=== PATIENT | female | born 1960 | race Two or more races ===

== ENCOUNTER 2020-11-10 10:45 | Outpatient (REF) | payer MEDICARE, MEDICAID, SELFPAY ==
--- NOTE | ~2020-11-10 | MM_ITS ---
EXAMINATION: MM SCREENING DIGITAL BREAST TOMOSYNTHESIS, BILATERAL CLINICAL INFORMATION: Screening. Asymptomatic. The lifetime risk of breast cancer based on the Tyrer-Cuzick Model is 6.8%. COMPARISON: Mammography: November 05, 2019 and studies dating back to April 21, 2012 TECHNIQUE: Digital breast tomosynthesis is performed in both the craniocaudal and mediolateral oblique views along with computer-aided detection (CAD). Synthesized 2D images are generated from the tomosynthesis. FINDINGS: There are scattered areas of fibroglandular density (ACR BI-RADS breast composition Category b). There are no significant masses, abnormal calcifications, or other abnormalities. MM/MM tomosynthesis screening BI IMPRESSION: There are no significant changes from prior study. ASSESSMENT: BI-RADS 1: Negative RECOMMENDATION: Routine annual mammography screening. This patient's information was entered into a reminder system with a target due date for their next mammogram.
== END 2020-11-10 10:46 | disposition home or self-care (01) ==
LOC: HO.MAMMO 10:45
PROVIDERS: PCP Internal Medicine; Visit Provider Internal Medicine
DX: Z12.31 Encounter for screening mammogram for malignant neoplasm of breast (principal)
CPT/HCPCS: 77063; 77067

== ENCOUNTER 2021-04-07 09:47 | Outpatient (REF) | payer MEDICARE, SELFPAY ==
[2021-04-07 13:31] LABS: MANUAL DIFF FLAG NO
[2021-04-07 13:35] LABS: Basophils Percent Auto 0.5 % (0-2); Eosinophils Absolute Auto 0.1 X10*3/uL (0.0-0.4); Eosinophils Percent Auto 1.8 % (0-4); Hematocrit 42.6 % (37-47); Hemoglobin 13.9 g/dl (12.0-16.0); Imm Gran Abs Auto 0.01 X10*3/uL (0.00-0.03); Imm Gran Pct Auto 0.2 % (0.0-0.4); Lymphocytes Absolute Auto 1.7 X10*3/uL (1.2-4.9); Lymphocytes Percent Auto 38.2 % (20-40); Mean Corpuscular HGB Conc 32.6 g/dl (31.0-35.0); Mean Corpuscular Hemoglobin 31.2 pg (27.0-33.0); Mean Corpuscular Volume 95.5 fL (80-98); Monocytes Absolute Auto 0.3 X10*3/uL (0.1-1.2); Monocytes Percent Auto 5.7 % (2-11); Neutrophils Absolute Auto 2.3 X10*3/uL (2.0-8.3); Neutrophils Percent Auto 53.6 % (45-73); Platelet Count 200 X10*3/uL (160-400); Red Blood Count 4.46 X10*6/uL (4.20-5.50); Red Cell Distribution Width 12.2 % (11.0-16.0); White Blood Count 4.4 X10*3/uL (4.8-10.8)
[2021-04-07 13:44] LABS: Glucose Urine UA NEG (NEG); Leukocyte Esterase Urine NEG (NEG); Nitrite Urine NEG (NEG); Specific Gravity - Urine >= 1.030 (1.005-1.025); Urine Blood NEG (NEG); Urine Ketones 5 MG/DL (NEG); Urine Protein NEG (NEG-TRACE)
[2021-04-07 13:45] LABS: Appearance Urine HAZY; Color Urine YELLOW
[2021-04-07 13:55] LABS: Alanine Aminotransferase < 6 U/L (0-31); Albumin Level 4.4 g/dL (3.5-5.0); Alkaline Phosphatase 70 U/L (39-117); Anion Gap 11 (12-20); Aspartate Amino Transferase 17 U/L (5-31); Bilirubin Total 0.5 mg/dL (0.0-1.0); Blood Urea Nitrogen 18 mg/dL (9-16); Calcium 9.7 mg/dL (8.4-10.2); Carbon Dioxide 31 mmol/L (22-29); Chloride 103 mmol/L (96-108); Cholesterol 241 mg/dL; Estimated Glomerular Filt Rate > 60; Glucose Random 101 mg/dL (60-115); HDL Cholesterol 69 mg/dL; LDL Cholesterol Calculated 153 mg/dl; Potassium 3.9 mmol/L (3.3-5.1); Sodium 141 mmol/L (135-145); Total Protein 7.3 g/dL (6.5-8.0); Triglycerides 98 mg/dL
[2021-04-07 13:56] LABS: Bacteria Urine 1+ /LPF; RBC Urine 0 /HPF (0); Squamous Epithelial Cell Urine 1+ /LPF; WBC Urine 0-2 /HPF (0-4)
[2021-04-07 14:06] LABS: Free T4 (Free Thyroxine) 0.95 ng/dL (0.71-1.85); Thyroid Stimulating Hormone 1.68 uIU/mL (0.32-4.0); Vitamin D 25-OH Total 41.6 ng/mL (>30)
[2021-04-07 14:28] LABS: Folate > 20.0 ng/mL (> or = 4.0); Vitamin B12 491 pg/mL (200-900)
== END 2021-04-07 09:48 | disposition home or self-care (01) ==
LOC: HO.10HDL 09:47
PROVIDERS: Visit Provider Internal Medicine
DX: E78.00 Pure hypercholesterolemia, unspecified (principal); G20 Parkinson's disease
CPT/HCPCS: 36415; 80053; 80061; 81001; 82306; 82607; 82746; 84439; 84443; 85025

== ENCOUNTER → 2021-05-03 09:37 | Outpatient (BNVA) | payer OTHER, SELFPAY | PROVIDERS: PCP Internal Medicine; Visit Provider Obstetrics & Gynecology | DX: R23.2 Flushing (principal) | CPT/HCPCS: 99212 ==

== ENCOUNTER → 2021-05-15 11:21 | Outpatient (BNVA) | payer OTHER, SELFPAY | PROVIDERS: PCP Internal Medicine; Visit Provider Obstetrics & Gynecology | CPT/HCPCS: Q3014 ==

== ENCOUNTER → 2021-10-02 13:51 | Outpatient (BNVA) | payer OTHER, MEDICARE, SELFPAY | PROVIDERS: PCP Internal Medicine; Visit Provider Nurse Practitioner Family | DX: G20 Parkinson's disease (principal); K59.00 Constipation, unspecified; F41.9 Anxiety disorder, unspecified; F32.9 Major depressive disorder, single episode, unspecified; R44.3 Hallucinations, unspecified | CPT/HCPCS: 99212 ==

== ENCOUNTER → 2021-11-30 14:36 | Outpatient (BNVA) | payer OTHER, SELFPAY | PROVIDERS: PCP Internal Medicine; Visit Provider Nurse Practitioner Family | DX: G20 Parkinson's disease (principal); G24.9 Dystonia, unspecified; K59.00 Constipation, unspecified; R23.2 Flushing | CPT/HCPCS: 99212 ==

== ENCOUNTER 2021-12-06 15:16 | Outpatient (REF) | payer OTHER, SELFPAY ==
--- NOTE | ~2021-12-06 | MM_ITS ---
EXAMINATION: MM SCREENING DIGITAL BREAST TOMOSYNTHESIS, BILATERAL CLINICAL INFORMATION: Screening. Asymptomatic. The lifetime risk of breast cancer based on the Tyrer-Cuzick Model is 6.1%. COMPARISON: Mammography: November 10, 2020 and studies dating back to May 26, 2014 TECHNIQUE: Digital breast tomosynthesis is performed in both the craniocaudal and mediolateral oblique views along with computer-aided detection (CAD). Synthesized 2D images are generated from the tomosynthesis. FINDINGS: There are scattered areas of fibroglandular density (ACR BI-RADS breast composition Category b). There are no new significant masses, abnormal calcifications, or other abnormalities. Region of stable distortion seen about the lateral aspect of the right breast. MM/MM tomosynthesis screening BI IMPRESSION: There are no significant changes from prior study. ASSESSMENT: BI-RADS 2: Benign RECOMMENDATION: Routine annual mammography screening. This patient's information was entered into a reminder system with a target due date for their next mammogram.
== END 2021-12-06 15:17 | disposition home or self-care (01) ==
LOC: HO.MAMMO 15:16
PROVIDERS: Visit Provider Internal Medicine
DX: Z12.31 Encounter for screening mammogram for malignant neoplasm of breast (principal)
CPT/HCPCS: 77063; 77067

== ENCOUNTER → 2022-03-08 09:55 | Outpatient (BNVA) | payer OTHER, SELFPAY | PROVIDERS: PCP Internal Medicine; Visit Provider Nurse Practitioner Family | DX: G20 Parkinson's disease (principal); G24.9 Dystonia, unspecified | CPT/HCPCS: 99212 ==

== ENCOUNTER 2022-04-13 12:57 | Outpatient (REF) | payer OTHER, SELFPAY ==
--- NOTE | ~2022-04-13 | MM_ITS ---
EXAMINATION: BONE DENSITOMETRY CLINICAL INDICATION: Osteoporosis. COMPARISON: Previous BD dated 11/05/2019 and baseline BD dated 04/10/2012. TECHNIQUE: Using a [employer] DXA System (software version: 13.1) manufactured by [employer], dual-energy x-ray absorptiometry was performed of the lumbar spine and left hip. The images are of good technical quality. Summary results are attached. FINDINGS: AP SPINE L1-L4: Current: BMD 1.016 g/cm2, Z-score 0.2, T-score -1.4, osteopenia, 1.1% decrease from previous, 13.5% decrease from baseline (<5% change is not significant). Prior: BMD 1.027 g/cm2. Baseline: BMD 1.174 g/cm2. LEFT FEMUR, NECK: Current: BMD 0.683 g/cm2, Z-score -1.1, T-score -2.6, osteoporosis. Prior: BMD 0.802 g/cm2. Baseline: BMD 0.880 g/cm2. LEFT FEMUR, TOTAL: Current: BMD 0.728 g/cm2, Z-score -1.1, T-score -2.2, osteopenia, 15.1% decrease from previous, 26.0% decrease from baseline (<5% change is not significant). Prior: BMD 0.857 g/cm2. Baseline: BMD 0.984 g/cm2. IDENTIFIED RISK FACTORS: Menopause, osteoporosis, rheumatoid arthritis. HISTORY OF FRACTURE: None listed. MEDICATIONS: Multivitamin, vitamin D. MM/XR DEXA axial skeleton IMPRESSION: 1. DIAGNOSIS: Osteoporosis based on the lowest T-score value of -2.6 in the femoral neck applying World Health Organization criteria. 2. 10-YEAR FRACTURE RISK PREDICTION, FRAX: According to the guidelines, FRAX calculation should only be performed on patients in the osteopenia bone density category. Therefore, FRAX was not performed on this patient. 3. Treatment Recommendations: NOF guidelines recommend consideration for treatment in postmenopausal women and men age 50 and older presenting with the following: -A hip or vertebral (clinical or morphometric) fracture. -T-score less than or equal to -2.5 at the femoral neck or spine after appropriate evaluation to exclude secondary causes. -Low bone mass at the hip or spine and a 10-year fracture probability by FRAX of greater than or equal to 3% for hip fracture or greater than or equal to 20% for major osteoporotic fracture based on the [place] adapted WHO algorithm. 4. Other Recommendations: All treatment decisions require clinical judgment and consideration of individual patient factors, including patient preferences, comorbidities, previous drug use, risk factors not captured in the FRAX model (e.g. frailty, falls, vitamin D deficiency, increased bone turnover, interval significant decline in bone density) and possible under or overestimation of fracture risk by FRAX. Additional medical evaluation for secondary cause of low bone mineral density may be appropriate. FUTURE SCAN RECOMMENDATION: People with diagnosed cases of osteoporosis or at high risk for fracture should have regular bone mineral density tests. For patients eligible for Medicare, routine testing is allowed once every 2 years. The testing frequency can be increased to one year for patients who have rapidly progressing disease, those who are receiving or discontinuing medical therapy to restore bone mass, or have additional risk factors.
== END 2022-04-13 12:58 | disposition home or self-care (01) ==
LOC: HO.MAMMO 12:57
PROVIDERS: PCP Internal Medicine; Visit Provider Internal Medicine
DX: M81.0 Age-related osteoporosis without current pathological fracture (principal); M06.9 Rheumatoid arthritis, unspecified; Z78.0 Asymptomatic menopausal state
CPT/HCPCS: 77080

== ENCOUNTER 2022-04-23 11:17 | Outpatient (REF) | payer OTHER, SELFPAY ==
[2022-04-23 13:38] LABS: MANUAL DIFF FLAG NO
[2022-04-23 13:49] LABS: Basophils Percent Auto 0.7 % (0-2); Eosinophils Absolute Auto 0.1 X10*3/uL (0.0-0.4); Eosinophils Percent Auto 1.2 % (0-4); Hematocrit 45.5 % (37.0-47.0); Hemoglobin 15.2 g/dl (12.0-16.0); Imm Gran Abs Auto 0.02 X10*3/uL (0.00-0.03); Imm Gran Pct Auto 0.3 % (0.0-0.4); Lymphocytes Absolute Auto 1.8 X10*3/uL (1.2-4.9); Lymphocytes Percent Auto 31.5 % (20-40); Mean Corpuscular HGB Conc 33.4 g/dl (31.0-35.0); Mean Corpuscular Hemoglobin 31.2 pg (27.0-33.0); Mean Corpuscular Volume 93.4 fL (80.0-98.0); Mean Platelet Volume 11.4 fL (9.4-12.3); Monocytes Absolute Auto 0.3 X10*3/uL (0.1-1.2); Monocytes Percent Auto 5.7 % (2-11); Neutrophils Absolute Auto 3.5 x10*3/uL (2.0-8.3); Neutrophils Percent Auto 60.6 % (45-73); Platelet Count 247 X10*3/uL (160-400); Red Blood Count 4.87 X10*6/uL (4.20-5.50); Red Cell Distribution Width 12.1 % (11.0-16.0); White Blood Count 5.8 X10*3/uL (4.8-10.8)
[2022-04-23 14:16] LABS: Alanine Aminotransferase 6 U/L (0-31); Albumin Level 5.1 g/dL (3.5-5.0); Alkaline Phosphatase 78 U/L (39-117); Anion Gap 19 (12-20); Aspartate Amino Transferase 22 U/L (5-31); Bilirubin Total 0.9 mg/dL (0.0-1.0); Blood Urea Nitrogen 17 mg/dL (9-16); Calcium 10.5 mg/dL (8.4-10.2); Carbon Dioxide 25 mmol/L (22-29); Chloride 104 mmol/L (96-108); Cholesterol 252 mg/dL; Estimated Glomerular Filt Rate > 60; Glucose Random 110 mg/dL (60-115); HDL Cholesterol 83 mg/dL; LDL Cholesterol Calculated 143 mg/dl; Sodium 144 mmol/L (135-145); Total Protein 8.4 g/dL (6.5-8.0); Triglycerides 131 mg/dL
[2022-04-23 14:22] LABS: Appearance Urine HAZY; Color Urine YELLOW; Glucose Urine UA NEG (NEG); Leukocyte Esterase Urine NEG (NEG); Nitrite Urine NEG (NEG); PH 5.5 (5.0-8.0); Specific Gravity - Urine >= 1.030 (1.005-1.025); Urine Blood NEG (NEG); Urine Ketones 15 MG/DL (NEG); Urine Protein 1+ MG/DL (NEG-TRACE)
[2022-04-23 14:28] LABS: Free T4 (Free Thyroxine) 1.09 ng/dL (0.71-1.85); Thyroid Stimulating Hormone 4.59 uIU/mL (0.32-4.0); Vitamin D 25-OH Total 38.3 ng/mL (>30)
[2022-04-23 14:33] LABS: Bacteria Urine 1+ /LPF
[2022-04-23 14:34] LABS: Squamous Epithelial Cell Urine 1+ /LPF
[2022-04-23 14:35] LABS: Mucus Urine 1+ /LPF
[2022-04-23 14:37] LABS: RBC Urine 0-2 /HPF (0)
[2022-04-23 14:40] LABS: Folate > 20.0 ng/mL (> or = 4.0); Vitamin B12 430 pg/mL (200-900)
[2022-04-23 14:57] LABS: Erythrocyte Sedimentation Rate 7 MM/HR (0-20)
== END 2022-04-23 11:18 | disposition home or self-care (01) ==
LOC: HO.10HDL 11:17
PROVIDERS: Visit Provider Internal Medicine
DX: E78.00 Pure hypercholesterolemia, unspecified (principal)
CPT/HCPCS: 36415; 80053; 80061; 81001; 82306; 82607; 82746; 84439; 84443; 85025; 85652

== ENCOUNTER 2022-06-07 09:52 | Outpatient (REF) | payer OTHER, SELFPAY ==
[2022-06-14 22:41] LABS: HPV mRNA E6/E7 rflx Not Detected (Not Detected)
== END 2022-06-07 09:53 ==
LOC: HO.LNP 09:52
PROVIDERS: Visit Provider Advanced Practice Midwife
DX: Z01.419 Encounter for gynecological examination (general) (routine) without abnormal findings (principal); Z11.51 Encounter for screening for human papillomavirus (HPV)
CPT/HCPCS: 87624; 88142

== ENCOUNTER → 2022-06-18 12:51 | Outpatient (BNVA) | payer OTHER, SELFPAY | PROVIDERS: PCP Internal Medicine; Visit Provider Nurse Practitioner Family | DX: G20 Parkinson's disease (principal); R23.2 Flushing | CPT/HCPCS: 99212 ==

== ENCOUNTER → 2022-08-01 12:47 | Outpatient (BNVA) | payer OTHER, SELFPAY | PROVIDERS: PCP Internal Medicine; Visit Provider Internal Medicine Endocrinology, Diabetes & Metabolism | DX: E83.52 Hypercalcemia (principal) | CPT/HCPCS: 99202 ==

== ENCOUNTER 2022-08-02 12:45 | Outpatient (REF) | payer OTHER, SELFPAY ==
[2022-08-02 14:25] LABS: Alanine Aminotransferase 6 U/L (0-31); Albumin Level 4.6 g/dL (3.5-5.0); Alkaline Phosphatase 73 U/L (39-117); Anion Gap 13 (12-20); Aspartate Amino Transferase 20 U/L (5-31); Bilirubin Total 0.4 mg/dL (0.0-1.0); Blood Urea Nitrogen 24 mg/dL (9-16); Calcium 9.6 mg/dL (8.4-10.2); Carbon Dioxide 30 mmol/L (22-29); Chloride 101 mmol/L (96-108); Estimated Glomerular Filt Rate > 60; Glucose Random 73 mg/dL (60-115); Potassium 4.1 mmol/L (3.3-5.1); Sodium 140 mmol/L (135-145); Total Protein 7.5 g/dL (6.5-8.0)
[2022-08-02 14:46] LABS: Free T4 (Free Thyroxine) 0.89 ng/dL (0.71-1.85); Thyroid Stimulating Hormone 2.37 uIU/mL (0.32-4.0)
[2022-08-03 12:22] LABS: Calcium (PTHI) 9.6 mg/dL (8.6-10.4); PTHI 36 pg/mL (16-77)
== END 2022-08-02 12:46 | disposition home or self-care (01) ==
LOC: HO.10HDL 12:45
PROVIDERS: Internal Medicine Endocrinology, Diabetes & Metabolism; Absent Provider Nurse Practitioner Family; Visit Provider Internal Medicine
DX: E83.52 Hypercalcemia (principal)
CPT/HCPCS: 36415; 80053; 83970; 84439; 84443

== ENCOUNTER → 2022-11-01 14:50 | Outpatient (BNVA) | payer OTHER, SELFPAY | PROVIDERS: PCP Internal Medicine; Visit Provider Nurse Practitioner Family | DX: G20 Parkinson's disease (principal); R23.2 Flushing; K59.00 Constipation, unspecified; G24.9 Dystonia, unspecified; Z79.899 Other long term (current) drug therapy | CPT/HCPCS: 99212 ==

== ENCOUNTER 2022-12-07 15:28 | Outpatient (REF) | payer OTHER, SELFPAY ==
--- NOTE | ~2022-12-07 | MM_ITS ---
EXAMINATION: MM SCREENING DIGITAL BREAST TOMOSYNTHESIS, BILATERAL CLINICAL INFORMATION: Screening. Asymptomatic. The lifetime risk of breast cancer based on the Tyrer-Cuzick Model is 6%. COMPARISON: Mammography: 12/06/2021, 11/10/2020, 11/05/2019 TECHNIQUE: Digital breast tomosynthesis is performed in both the craniocaudal and mediolateral oblique views along with computer-aided detection (CAD). Synthesized 2D images are generated from the tomosynthesis. FINDINGS: There are scattered areas of fibroglandular density (ACR BI-RADS breast composition Category b). There are no significant masses, abnormal calcifications, or other abnormalities. No developing density or architectural abnormality. No significant changes. The axilla and skin contours are unremarkable. MM/MM tomosynthesis screening BI IMPRESSION: No mammographic evidence of malignancy. ASSESSMENT: BI-RADS 1: Negative RECOMMENDATION: Routine annual mammography screening. This patient's information was entered into a reminder system with a target due date for their next mammogram.
== END 2022-12-07 15:29 | disposition home or self-care (01) ==
LOC: HO.MAMMO 15:28
PROVIDERS: Visit Provider Internal Medicine
DX: Z12.31 Encounter for screening mammogram for malignant neoplasm of breast (principal)
CPT/HCPCS: 77063; 77067

== ENCOUNTER 2022-12-12 13:26 | Outpatient (REF) | payer OTHER, SELFPAY ==
[2022-12-12 14:22] LABS: Appearance Urine Cloudy; Color Urine Yellow; Glucose Urine UA Negative (Negative); Leukocyte Esterase Urine Trace (Negative); Nitrite Urine Positive (Negative); PH 6.5 (5.0-9.0); Specific Gravity - Urine >= 1.030 (1.005-1.025); UMIC TRIGGER UACC YES; Urine Blood Negative (Negative); Urine Ketones 15 mg/dL (Negative); Urine Protein Trace mg/dL (Neg-Trace)
[2022-12-12 14:36] LABS: Bacteria Urine 4+ (None Seen); Calcium Oxalate Crystals Urine Present; Hyaline Casts Urine 0-2 /LPF (0-2); Squamous Epithelial Cell Urine 0-2 /HPF (0-2); UACC Culture Trigger YES
== END 2022-12-12 13:27 | disposition home or self-care (01) ==
LOC: HO.LAB 13:26
PROVIDERS: PCP Internal Medicine; Visit Provider Nurse Practitioner Family
DX: R35.0 Frequency of micturition (principal); R30.0 Dysuria
CPT/HCPCS: 81001; 87086; 87088; 87186

== ENCOUNTER 2022-12-25 14:57 | Outpatient (REF) | payer OTHER, SELFPAY ==
[2022-12-25 15:17] LABS: Appearance Urine Cloudy; Color Urine Dark Yellow; Glucose Urine UA Negative (Negative); Leukocyte Esterase Urine Trace (Negative); Nitrite Urine Negative (Negative); PH 5.5 (5.0-9.0); Specific Gravity - Urine >= 1.030 (1.005-1.025); UMIC TRIGGER UACC YES; Urine Blood Negative (Negative); Urine Ketones 15 mg/dL (Negative); Urine Protein Trace mg/dL (Neg-Trace)
[2022-12-25 15:33] LABS: Bacteria Urine None Seen (None Seen); Calcium Oxalate Crystals Urine Present; Hyaline Casts Urine 0-2 /LPF (0-2); UACC Culture Trigger YES
== END 2022-12-25 14:58 | disposition home or self-care (01) ==
LOC: HO.LNP 14:57
PROVIDERS: Visit Provider Internal Medicine
DX: N39.0 Urinary tract infection, site not specified (principal)
CPT/HCPCS: 81001; 81003; 87086

== ENCOUNTER → 2023-01-10 13:53 | Outpatient (BNVA) | payer OTHER, SELFPAY | PROVIDERS: PCP Internal Medicine; Visit Provider Nurse Practitioner Family | DX: G20 Parkinson's disease (principal); G24.9 Dystonia, unspecified; R23.2 Flushing | CPT/HCPCS: 99212 ==

== ENCOUNTER → 2023-02-04 12:22 | Outpatient (BNVA) | payer OTHER, SELFPAY | PROVIDERS: PCP Internal Medicine; Referring Provider Internal Medicine; Visit Provider Internal Medicine | DX: K59.00 Constipation, unspecified (principal); G20 Parkinson's disease | CPT/HCPCS: 99202 ==

== ENCOUNTER 2023-04-04 11:38 | Outpatient (AMB) | payer OTHER, SELFPAY ==
--- NOTE | 2023-04-04 11:46 | MHC.OFFVIS ---
Intake Vital Signs 04/04/23 11:48 Height 5 ft Weight 116 lb 13.52 oz BMI 22.8 BP 112/76 Intake Visit Reasons: Hot flashes follow up Disability Services Coordinator Required: No Information Interpreted: non-clinical & clinical Accompanied by: Employee Allergies No Known Allergies Allergy (Verified 04/04/23 11:49) HPI HPI Comments History of Present Illness Details Presenting to discuss hot flashes. The patient has been off Prempro for the last few months. Last mammogram was BI-RADS 1 in 12/06, last DEXA scan showed osteoporosis in 04/[address] Medley, last co testing was in 06/07 [facility] Medical History Cervical nerve root impingement Depression Hypercholesteremia Insomnia Parkinson disease Peripheral neuropathy Tarlov cyst Vitamin D deficiency Surgical History History of bilateral tubal ligation History of hand surgery Hx of colonoscopy Family History Father No problems noted. Mother Diabetes Son No problems noted. Maternal Aunt Colon cancer Maternal Uncle Colon cancer Social History Household Members Other:: daughter Housing: Apartment Alcohol intake: never Patient Tobacco Use Status: Former Tobacco user Tobacco use type: Cigarette Years Smoked: smokes weed quit smoking 32 years old e-Cigarette/Vaping Use: Never Used Sexual orientation: Straight/Heterosexual Gender identity: Female Cognitive needs: No Hearing needs: No Vision needs: No Female Reproductive History Menstrual Age of Menarche: 15 Review of Systems Const All systems reviewed & are unremarkable except as noted in HPI and below Reports as per HPI and Reports no additional complaints GI Reports no additional complaints Reports no additional complaints Physical Exam Vital Signs: Last Vital Signs BP 112/76 04/04/23 11:48 BMI result Body Mass Index 22.8 Assessment & Plan Assessment & Plan (1) Hot flashes: Code(s): R23.2 - Flushing Plan: Discussed with the patient the options of treatment of hot flashes including hormonal replacement therapy, all the pros, cons, risks and benefits (benefits= prevention of hot flashes, atrophic vaginitis, osteoporosis, decrease colon ca risk; also discussed with the patient the risks of NV, Breast ca, DVT, PE, Strokes). In addition, discussed with the patient non hormonal treatment options for hot flashes treatment. Options discussed with the patient include the following: SSRI/SNRIs , Paroxetine 7.5 mg per day is suggested to be as a 1st choice the SSRI/SNRI such, FDA approved for treatment of hot flashes, but it my interact and increase the side effects for carbidopa levodopa. Recommended for the patient to follow-up with her neurologist since she is having side effects from her carbidopa levodopa , and with her primary care and office analyst regarding with her DEXA scan and back to me to discuss nonhormonal options for hot flash treatment. All questions answered, the patient verbalized understand Coding Level of Care Code Est Pt Level 3 (83794) Diagnoses Hot flashes R23.2
[2023-04-04 11:48] VITALS: BP 112/76; BMI 22.8
== END 2023-04-04 12:14 | disposition home or self-care (01) ==
LOC: HO.HWS 11:38
PROVIDERS: PCP Internal Medicine; Visit Provider Obstetrics & Gynecology
DX: R23.2 Flushing (principal)
CPT/HCPCS: 99213

== ENCOUNTER → 2023-04-04 11:38 | Outpatient (BNVA) | payer OTHER, SELFPAY | PROVIDERS: PCP Internal Medicine; Visit Provider Obstetrics & Gynecology | DX: R23.2 Flushing (principal) | CPT/HCPCS: 99212 ==

== ENCOUNTER 2023-04-24 13:33 | Outpatient (AMB) | payer OTHER, SELFPAY ==
[2023-04-24 13:34] VITALS: BP 104/70; PULSE 90; O2SAT 99; BMI 22.7
--- NOTE | 2023-04-24 13:34 | A.OFFVIS_ITS ---
Intake Vital Signs 04/24/23 13:34 Height 5 ft Weight 116 lb 8 oz BMI 22.7 BP 104/70 Blood Pressure Location Lt brachial Position Sitting Pulse 90 Pulse Source Pulse Oximeter Pulse Oximetry (%) 99 Oxygen Delivery Method Room Air Intake Visit Reasons: 3m follow up Parkinson's - Confirmed Intake Note: Pt presents with her niece and SOFTWARE TEST SPECIALIST as f/u for Parkinsons. Pt states its Still the same ordeal with trying to find some help for the hormones. Pt's niece said the sweating is around the clock. Director Of Pharmacy Required: No Accompanied by: Nephew or Niece Allergies No Known Allergies Allergy (Verified 04/24/23 13:39) Medication List - Last Reconciled 04/24/23 by AMADEO Guardado carbidopa-levodopa 25-100 mg 1 tab PO QID PRN 30 days carbidopa-levodopa 48.75-195 mg ER (Rytary) 2 caps orally every 3 hours; 30 days lorazepam 0.5 mg PO TID PRN 30 days peg 3350-electrolytes 236-22.74-6.74 -5.86 gram (Golytely) 240 mL PO Q10M HPI HPI Comments History of Present Illness Details 63-yr-old female presents for f/u visit, accompanied by her niece. Pt denies any significant interval medical history changes. Pt's primary concerns are: Pt continues to have bothersome sweating, chills, abdominal bloating. She continues to have unpredictable off-times despite being compliant with her Ryatrya nd CD-LD regimen. She reports propranolol did not help the sweating and caused lightheadedness. She tried Rasagiline x's 1 month- but did not tolerate it. She does endorse headaches. She denies nipple discharge. Her niece wonders if a f/u brain MRI would help to assess PD progression. Her niece wonders if the Rytary or CD-LD is contributing to pt's sweating and intermittent confusion s/s. [facility] Medical History Cervical nerve root impingement Depression Hypercholesteremia Insomnia Parkinson disease Peripheral neuropathy Tarlov cyst Vitamin D deficiency Surgical History History of bilateral tubal ligation History of hand surgery Hx of colonoscopy Family History Father No problems noted. Mother Diabetes Son No problems noted. Maternal Aunt Colon cancer Maternal Uncle Colon cancer Social History (Updated 04/24/23 @ 13:41 by Yvette Lambert [facility]) Household Members Other:: daughter Housing: Apartment Alcohol intake: never Patient Tobacco Use Status: Former Tobacco user Tobacco use type: Cigarette Years Smoked: smokes weed quit smoking 32 years old e-Cigarette/Vaping Use: Never Used Substance Use Type: Marijuana Sexual orientation: Straight/Heterosexual Gender identity: Female Cognitive needs: No Hearing needs: No Vision needs: No Female Reproductive History Menstrual Age of Menarche: 15 Review of Systems Const All systems reviewed & are unremarkable except as noted in HPI and below Physical Exam Vital Signs: Last Vital Signs Pulse 90 04/24/23 13:34 BP 104/70 04/24/23 13:34 Pulse Ox 99 04/24/23 13:34 Oxygen Delivery Method Room Air 04/24/23 13:34 BMI result Body Mass Index 22.7 Const General: cooperative and no acute distress Resp Effort & Inspection: normal respiratory effort and able to speak in complete sentences Neuro Other: Physical exam limited today as pt requested shorter visit as she stated she was not feeling too well d/t abd bloating. Cognition: Alert, oriented. Expression: Decreased expression and blink Voice: Soft voice Tremor: None observed Tone: not-assessed Dyskinesia: None observed FFM: not assessed Foot taps: not assessed Gait: Slow to stand, short steps, left leg catching/dragging, steady with walker Assessment & Plan Assessment & Plan (1) Parkinson disease: Comment: May 2019 Code(s): G20 - Parkinson's disease (2) Hot flashes: Code(s): R23.2 - Flushing (3) Dystonia: Code(s): G24.9 - Dystonia, unspecified Plan Discussed that brain MRI is not able to assess PD progression. However, pt does c/o frequent bothersome sweating, headaches- conisder brain MRI w/wo to assess for any pituitary process. Pt has stopped Propranolol 10mg bid and Rasagiline- not tolerated. Trial adding Carbidopa 25mg to Rytary (5 daytime doses)- in hopes this lessens GI s/s. Continue Rytary 48.75-195 mg cap, 2 caps p.o. every 3 hrs.- pt is not interested in decreasing Rytary at this time. Continue carbidopa levodopa 25-100 mg 1 tab p.o. q.i.d. p.r.n. for off times. Continue lorazepam p.r.n. anxiety and dystonic episodes. I have advised pt to try Apokyn 0.1ml-0.4ml inj q 2 hrs (max 2ml per day)- to reduce unpredictable PD off-time s/s. Will initiate prior-auth request. Once apporved, will initiate an order for trimethobenzamide to start prior to Apokyn and then prn N/V. Previous trials- Pramipexole- caused increased sweating, Propranolol 10mg bid- caused lightheadedness, Rasagiline- not tolerated. Inbrija previously was helpful- however most recent insurance denial- insurance requires trial of Rasagiline,m selegiline, entacapone, tolcapone, ongentys, nourianz.. Pt is still not interested in Duopa- d/t excessive sweating. f/u in 3 months or sooner prn. Medications: New carbidopa 25 mg orally 6 times per day; 30 days 180 tabs 3RF apomorphine (APOKYN) max 5 injections (2ml) per day 0.1 - 0.4 mL subcut Q2H 30 days PRN 30 mL 3RF parkinson off-time trimethobenzamide starting 3 days prior to 1st dose of Apokyn and then prn 300 mg PO Q6H 30 days PRN 30 caps 0RF nausea and vomiting Coding Level of Care Code Est Pt Level 4 (56137) Diagnoses Parkinson disease G20 Hot flashes R23.2 Dystonia G24.9
== END 2023-04-24 14:24 | disposition home or self-care (01) ==
PROVIDERS: Visit Provider Nurse Practitioner Family
DX: G20 Parkinson's disease (principal); R23.2 Flushing; G24.9 Dystonia, unspecified
CPT/HCPCS: 99214

== ENCOUNTER → 2023-04-24 13:33 | Outpatient (BNVA) | payer OTHER, SELFPAY | PROVIDERS: Visit Provider Nurse Practitioner Family | DX: G20 Parkinson's disease (principal); R23.2 Flushing; G24.9 Dystonia, unspecified | CPT/HCPCS: 99212 ==

== ENCOUNTER 2023-05-02 06:54 | Day surgery (SDC) | payer OTHER, SELFPAY ==
[2023-04-30 10:11] VITALS: BMI 22.7
--- NOTE | 2023-05-01 09:11 | P.CONAN_ITS ---
Documented by User: Ariana Alvarez NP 05/01/23 09:13 HPI - Anesthesia Eval Consult details Narrative: 63yo F for Colonoscopy PMFSH Active Problems Active Problems: All Active Problems (Updated 04/30/23 @ 10:11 by Kasandra Cuenca RN) Hot flashes (Acute) Anxiety and depression (Acute) Medicare annual wellness visit, initial (Acute) Constipation (Acute) Hallucinations (Acute) Generalized anxiety disorder (Acute) Dystonia (Acute) Pruritic rash (Acute) Medicare annual wellness visit, subsequent (Acute) Age-related osteoporosis without current pathological fracture (Acute) Cervical cancer screening (Acute) Hypercalcemia (Acute) TSH elevation (Acute) Encounter for annual routine gynecological examination (Acute) Dyskinesia (Acute) UTI (urinary tract infection) (Acute) Kidney stone on left side (Acute) Hospital discharge follow-up (Acute) Hypercholesteremia (Acute) Parkinson disease (Acute) Past Medical History Medical History Cervical nerve root impingement Depression Hypercholesteremia Insomnia Parkinson disease Peripheral neuropathy Renal calculi Tarlov cyst Vitamin D deficiency Family History Family History Father No problems noted. Mother Diabetes Son No problems noted. Maternal Aunt Colon cancer Maternal Uncle Colon cancer Surgical History Surgical History History of bilateral tubal ligation History of hand surgery Hx of colonoscopy Social History Social History (Updated 04/24/23 @ 13:41 by Yvette Lambert CMA) Household Members Other:: daughter Housing: Apartment Are you a primary plant health care technician to a significant other at home: No Do you presently have visiting nurse or other home services: Yes ([employer] daily) Alcohol intake: never Patient Tobacco Use Status: Former Tobacco user Quit Date: years ago Tobacco use type: Cigarette Years Smoked: smokes weed quit smoking 32 years old e-Cigarette/Vaping Use: Never Used Use of substances other than those prescribed or required for medical reasons: Yes Substance Use Type: Marijuana Substance Use Frequency: Daily Have you been hit, kicked, punched, or otherwise hurt by someone within the past year? If so, by whom?: No Are you DNR?: No Advance Directives: No Advance Directives Information Provided: Yes Advance Directives on File: No Recently lost weight without trying: No Sexual orientation: Straight/Heterosexual Gender identity: Female Cognitive needs: No Hearing needs: No Vision needs: No Meds Allergies Allergy/AdvReac Type Severity Reaction Status Date / Time No Known Allergies Allergy Verified 05/02/23 07:50 Exam Exam Date and Time: May 01, 2023 0911 Height,Weight and Vital Signs: Height 5 ft Weight 52.617 kg Assessment and Plan Assessment Anesthesia Assessment: Chart Reviewed Documented by User: Dylan Francois MD 05/02/23 08:09 PMFSH Past Medical History Medical History Cervical nerve root impingement Depression Hypercholesteremia Insomnia Parkinson disease Peripheral neuropathy Renal calculi Tarlov cyst Vitamin D deficiency Family History Family History Father No problems noted. Mother Diabetes Son No problems noted. Maternal Aunt Colon cancer Maternal Uncle Colon cancer Family history of problems with anesthesia: No Surgical History Surgical History History of bilateral tubal ligation History of hand surgery Hx of colonoscopy History of Problems with Anesthesia: No Social History Social History (Updated 04/24/23 @ 13:41 by Yvette Lambert CMA) Household Members Other:: daughter Housing: Apartment Are you a primary plant health care technician to a significant other at home: No Do you presently have visiting nurse or other home services: Yes (DUPLICATE MAKER daily) Alcohol intake: never Patient Tobacco Use Status: Former Tobacco user Quit Date: years ago Tobacco use type: Cigarette Years Smoked: smokes weed quit smoking 32 years old e-Cigarette/Vaping Use: Never Used Use of substances other than those prescribed or required for medical reasons: Yes Substance Use Type: Marijuana Substance Use Frequency: Daily Have you been hit, kicked, punched, or otherwise hurt by someone within the past year? If so, by whom?: No Are you DNR?: No Advance Directives: No Advance Directives Information Provided: Yes Advance Directives on File: No Recently lost weight without trying: No Sexual orientation: Straight/Heterosexual Gender identity: Female Cognitive needs: No Hearing needs: No Vision needs: No Meds Allergies Allergy/AdvReac Type Severity Reaction Status Date / Time No Known Allergies Allergy Verified 05/02/23 07:50 Exam Airway Mallampati Class: II TM Dist: >3cm Neck ROM: Full Loose/Missing/Broken Teeth: Yes Assessment and Plan Assessment Anesthesia Assessment: Anesthesia Plan Discussed Final Anesthetic Review Family History of Problems with Anesthesia: No History of Problems with Anesthesia: No NPO: Yes ASA Class: III Final Preanesthetic Review: No Changes in Pt Med Stat, Meds/Allgs Chart Reviewed, Consent Obtained/Reviewed and Anes Risks/Benef Reviewed Patient Risk: Intermediate Procedure Risk: Low Anesthetic Plan Anesthetic Plan: MAC: Disposition: Standard PACU
[2023-05-02] MEDS: Sodium Phosphate,Mono-Dibasic 133 ML ENEMA PR (07:14)
[2023-05-02] MEDS: Lactated Ringers 1,000 ML 100 ML IVCONT (07:17)
[2023-05-02 07:47] VITALS: BP 148/74; PULSE 95; RESP 18; TEMP 36.4; O2SAT 96
--- NOTE | 2023-05-02 08:02 | P.OP_ITS ---
Operative Note Operative Note Date of Service: 05/02/23 Narrative: Procedure: Colonoscopy Indication: Change in bowel habits Endoscopist: Chelsea Cha MD Anesthesia Provider: Dr Dylan Francois Anesthesia type: MAC Instrument: Olympus [id number]-H190L Consent: Indication, risks vs benefits, and alternatives were discussed with the patient who gave written informed consent to proceed. EKG, pulse, pulse oximetry and blood pressure were monitored throughout the procedure. Please see anesthesia flowsheet. Procedure: The patient was brought to the procedure room and placed in the left lateral decubitus position. IV medications were administered by the anesthesia provider in attendance. A digital rectal exam was performed which was normal. A distal attachment cap was affixed to the tip of the scope and the colonoscope was then inserted through the anus and advanced through the colon to the cecum at 80 cm,and terminal ileum. Appendiceal orifice and ileocecal valve were identified. Mucosa was carefully examined under high definition white light as the instrument was slowly withdrawn in a retrograde panoramic fashion. Retroflexion was performed in rectum. The procedure was not difficult. There were no immediate obvious complications. The quality of the prep was BBPS: 3+2+3 = adequate Withdrawal time 10 minutes. Limitations: No limitations. Findings: Mucosa: Normal to cecum and terminal ileum. Protruding lesions: * 1 sessile polyp of size 2 mm in cecum. Cold snare polypectomy was performed. The polyp was completely removed and retrieved. * Medium internal hemorrhoids without stigmata of recent bleeding. Excavated lesions: * Moderate to severe diverticulosis of left sided colon. Impression: 1. Normal colon and terminal ileum mucosa 2. Total of 1 polyp removed from cecum. 3. Internal hemorrhoids 4. Diverticulosis Recommendations: - Follow path results. - Repeat colonoscopy in 7-10 years if polyp is an adenoma. - Increase fiber intake. Miralax and senna PRN for constipation.
--- NOTE | 2023-05-02 08:02 | MHC.SHP ---
Pre-Procedural Eval Section A Date of Service: 05/02/23 Section B Chief Complaint: changes in bowel habits Details of Present Illness: PMH: Cervical nerve root impingement Depression Hypercholesteremia Insomnia Parkinson disease Peripheral neuropathy Tarlov cyst Vitamin D deficiency Surgical History History of bilateral tubal ligation History of hand surgery Hx of colonoscopy Present Medications: see Short Stay Collaborative assessment Allergies: Allergies Allergy/AdvReac Type Severity Reaction Status Date / Time No Known Allergies Allergy Verified 05/02/23 07:50 Review of Systems Review of Systems Comment: 10 point ROS negative Exam Exam Comment: Gen appear: No acute distress HEENT: no icterus Chest: No overt resp distress Abd: soft, nontender, nondistended Psych: Stable affect, answering questions appropriately Neuro: A/Ox3 noted to move all extremities spontaneously Ext: no peripheral edema Plan Diagnosis/Plan: Unchanged I have reviewed the history and physical and performed a pertinent physical examination on my patient. No changes have occurred unless specified. Time Spent With Patient Time: Total time managing care of this patient today ____ minutes.
[2023-05-02 08:41] VITALS: BP 112/66; PULSE 86; RESP 16; TEMP 36.1; O2SAT 96
[2023-05-02 08:56] VITALS: BP 104/58; PULSE 83; RESP 18; TEMP 36.1; O2SAT 99
== END 2023-05-02 09:23 | disposition home or self-care (01) ==
PROVIDERS: PCP Internal Medicine; Visit Provider Internal Medicine
PROC: 0DJD8ZZ Inspection of Lower Intestinal Tract, Via Natural or Artificial Opening Endoscopic (ICD-10-PCS; CPT 45378; principal; 2023-05-02 08:30)
DX: D12.0 Benign neoplasm of cecum (principal); K57.30 Diverticulosis of large intestine without perforation or abscess without bleeding; K64.8 Other hemorrhoids; K59.00 Constipation, unspecified; G20 Parkinson's disease; E78.00 Pure hypercholesterolemia, unspecified; Z87.891 Personal history of nicotine dependence
CPT/HCPCS: 45385; 88305

== ENCOUNTER → 2023-05-02 06:54 | Outpatient (BNV) | payer OTHER, SELFPAY | PROVIDERS: PCP Internal Medicine; Visit Provider Internal Medicine | DX: R19.4 Change in bowel habit (principal); D12.0 Benign neoplasm of cecum; K57.30 Diverticulosis of large intestine without perforation or abscess without bleeding; K64.8 Other hemorrhoids | CPT/HCPCS: 45385 ==

== ENCOUNTER 2023-05-13 10:51 | Outpatient (AMB) | payer OTHER, SELFPAY ==
[2023-05-13 10:53] VITALS: BP 106/53; PULSE 95; BMI 22.0
--- NOTE | 2023-05-13 10:53 | A.OFFVIS_ITS ---
Intake Vital Signs 05/13/23 10:53 Height 5 ft Weight 112 lb 6.972 oz BMI 22.0 BP 106/53 L Blood Pressure Location Rt brachial Position Sitting Pulse 95 Intake Visit Reasons: S/p colon Intake Note: Mila presents in the office as a follow up colonoscopy. CC: No concerns today just here for results for colonoscopy. Allergies No Known Allergies Allergy (Verified 05/13/23 10:55) HPI HPI Comments History of Present Illness Details 62 y.o F with PMH of Parkison's disease who is here for constipation. Accompanied by her niece/RECOIL SPRING WINDER Denia in office today. 02/04/23: Reports she has had constipation on and off for at least 2 decades but has gotten worse in the last couple of years. Reports 2-3 BMs per week. Has to strain and splint a lot. No digitalisation. When she does pass the stool the BM is hard and pellet like. Has tried senna, colace, prune juice and only helps with the consistency of the stool but not the frequency or the straining. Of note has PD and was started on carbidopa/levodopa 5 years ago. ? Hypercalcemia in the past however was eventually found to have normal calcium according to albumin. Last colonoscopy 2012 (Dr Mcginnis): normal. 05/02/23: [place] 1. Normal colon and terminal ileum mucosa 2. Total of 1 polyp removed from cecum. 3. Internal hemorrhoids 4. Diverticulosis Path: Cecum, polypectomy:? Tubular adenoma; negative for high-grade dysplasia or carcinoma. 05/13/23: Reports improvement in stool frequency and consistency since starting senna and miralax. Now going at least once daily. Also getting meds adjusting from Neurologist which will also help with GI s/sx assoc with PD. [facility] Medical History Cervical nerve root impingement Depression Hypercholesteremia Insomnia Parkinson disease Peripheral neuropathy Renal calculi Tarlov cyst Vitamin D deficiency Surgical History History of bilateral tubal ligation History of hand surgery Hx of colonoscopy Family History Father No problems noted. Mother Diabetes Son No problems noted. Maternal Aunt Colon cancer Maternal Uncle Colon cancer Social History Household Members Other:: daughter Housing: Apartment Are you a primary healthcare administration intern to a significant other at home: No Do you presently have visiting nurse or other home services: Yes (RECOIL SPRING WINDER daily) Alcohol intake: never Patient Tobacco Use Status: Former Tobacco user Quit Date: years ago Tobacco use type: Cigarette Years Smoked: smokes weed quit smoking 32 years old e-Cigarette/Vaping Use: Never Used Substance Use Type: Marijuana Sexual orientation: Straight/Heterosexual Gender identity: Female Cognitive needs: No Hearing needs: No Vision needs: No Female Reproductive History Menstrual Age of Menarche: 15 Review of Systems Const All systems reviewed & are unremarkable except as noted in HPI and below Physical Exam Vital Signs: BMI result Body Mass Index 22.0 Gen appear: Elderly female, NAD HEENT: nonicteric, no cervical lymphadenopathy Chest: CTA CVS: Regular S1/S2 Abd: soft, nontender, nondistended, bowel sounds + Ext: no peripheral edema Neuro: R hand rollign tremor, A/Ox3 Psych: interacting appropriately Assessment & Plan Assessment & Plan (1) Constipation: Code(s): K59.00 - Constipation, unspecified (2) Parkinson disease: Comment: May 2019 Code(s): G20 - Parkinson's disease (3) Personal history of colonic polyps: Code(s): Z86.010 - Personal history of colonic polyps Plan Likely multifactorial from PD as well as its pharmacotherapy. Lifestyle and medical therapy discussed as below. Colonoscopy results reviewed in detail. Current bowel habits much more tolerable. Reviewed with pt that constipation MAY get worse with apokyn in which case can trial prucalopride vs lubiprostone neither of which have major interactions with her current antiparkinsonian regimen. Recommend: - Continue fiber and water intake - Elevate legs at the time of BM - Continue miralax once daily can increase to BID as needed - Repeat colo in 7-10 years for polyp surveillance if in good health - Follow up in a year or earlier PRN Coding Level of Care Code Est Pt Level 4 (12991) Diagnoses Constipation K59.00 Parkinson disease G20 Personal history of colonic polyps Z86.010
== END 2023-05-13 11:08 | disposition home or self-care (01) ==
PROVIDERS: Visit Provider Internal Medicine
DX: K59.00 Constipation, unspecified (principal); G20 Parkinson's disease; Z86.010 Personal history of colon polyps
CPT/HCPCS: 99214

== ENCOUNTER → 2023-05-13 10:51 | Outpatient (BNVA) | payer OTHER, SELFPAY | PROVIDERS: Visit Provider Internal Medicine | DX: K57.30 Diverticulosis of large intestine without perforation or abscess without bleeding (principal); D12.0 Benign neoplasm of cecum; K64.8 Other hemorrhoids; K59.00 Constipation, unspecified; G20 Parkinson's disease; Z98.890 Other specified postprocedural states | CPT/HCPCS: 99212 ==

== ENCOUNTER 2023-06-03 13:10 | Outpatient (AMB) | payer OTHER, SELFPAY ==
[2023-06-03 13:13] VITALS: BP 106/70; BMI 21.9
--- NOTE | 2023-06-03 13:13 | A.OFFPC_ITS ---
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 Required: No Accompanied by: [employer] Allergies No Known Allergies Allergy (Verified 06/03/23 13:14) Medication List - Last Reconciled 06/03/23 by Ava Medley MD apomorphine (APOKYN) 0.1 - 0.4 mL subcut Q2H PRN 30 days carbidopa 25 mg orally 6 times per day; 30 days carbidopa-levodopa 25-100 mg 1 tab PO QID PRN 30 days carbidopa-levodopa 48.75-195 mg ER (Rytary) 2 caps orally every 3 hours; 30 days chlorhexidine gluconate 0.12% mL PO lorazepam 0.5 mg PO TID PRN 30 days polyethylene glycol 3350 (Miralax) 17 grams PO DAILY sennosides (senna) 8.6 mg PO DAILY trimethobenzamide 300 mg PO TID PRN Tobacco use date assessed: 01/31/23 Dental Screening Dental Screen Date: 06/03/23 Did you have a dental visit in the last 12 months?: Yes Did you have a dental problem in the last 6 months where you did not have access to dental care?: No Was dental information given to patient?: Patient has dentist HPI HLD HPI Details 63-year-old female with Parkinson's dise ase osteoporosis hypercholesterolemia and generalized anxiety disorder last seen in March 2022 patient is here for follow-up. Colonoscopy is up-to-date mammogram is up-to-date bone density done in March 2022 patient follows up with practice advisor seen in April 2023 post colonoscopy and to repeat in 7-10 years constipation part secondary to Parkinson's disease. For the Parkinson's follows up with Neurology. Patient is taking Rytary 5 times a day. Patient was seen in the office also in January 2023 due to a hospitalization for renal calculi 3 mm left kidney and UTI.. Patient complains of having hot flashes and has complained to the present neurologist about side effects of the medication but no changes has been done. Discussed with family that the problem bar for Parkinson's is that we have limited medication for it and that there is no alternative for the present treatment. Patient is wanting another opinion from a different neurologist and so will do referral. As for the left renal calculi discussed about increasing fluids to prevent the stone from getting bigger as well as to help discharge the stone. As for constipation is helping with the senna as well as with MiraLax. Discussed about blood work [facility] Medical History Cervical nerve root impingement Depression Hypercholesteremia Insomnia Parkinson disease Peripheral neuropathy Renal calculi Tarlov cyst Vitamin D deficiency Surgical History Hx of colonoscopy History of hand surgery History of bilateral tubal ligation Family History (Updated 06/03/23 @ 13:15 by GABRIEL David) Father No problems noted. Mother Diabetes Son No problems noted. Maternal Aunt Colon cancer Maternal Uncle Colon cancer Social History Household Members Other:: daughter Housing: Apartment Are you a primary health care facility administrator to a significant other at home: No Do you presently have visiting nurse or other home services: Yes ([employer] daily) Alcohol intake: never Patient Tobacco Use Status: Former Tobacco user Quit Date: years ago Tobacco use type: Cigarette Years Smoked: smokes weed quit smoking 32 years old e-Cigarette/Vaping Use: Never Used Substance Use Type: Marijuana service: No Current occupational status: disabled Sexual orientation: Straight/Heterosexual Gender identity: Female Cognitive needs: Yes Hearing needs: No Vision needs: No Female Reproductive History Menstrual Age of Menarche: 15 Questionnaire PHQ-9 Over the last 2 weeks, how often have you been bothered by any of the following problems? 1. Little interest or pleasure in doing things: several days 2. Feeling down, depressed, or hopeless: several days 3. Trouble falling or staying asleep, or sleeping too much: nearly every day 4. Feeling tired or having little energy: nearly every day 5. Poor appetite or overeating: several days 6. Feeling bad about yourself - or that you are a failure or have let yourself or your family down: not at all 7. Trouble concentrating on things, such as reading the newspaper or watching television: several days 8. Moving or speaking so slowly that other people could have noticed. Or the opposite - being so fidgety or restless that you have been moving around a lot more than usual: nearly every day 9. Thoughts that you would be better off or of hurting yourself in some way: not at all Total score: 13 Source: Developed by Drs. Telly Staples, Yissel Richard, Theo Ruggiero and colleagues, with an educational kelvin from [employer]. Thrive Questionnaire Date Thrive assessed: 06/03/23 I am a: Patient What is your living situation today?: I have a steady place to live Within the past 12 months, did the food you bought not last and you didn't have the money to get more?: Never true Within the past 12 months, did you worry whether your food would run out before you got money to buy more?: Never true Do you have trouble paying for medicines?: No Do you have trouble getting transportation to medical appointments?: No Do you have trouble paying your heating and electricity bill?: No Do you have trouble taking care of your child, family member or friend?: No Do you have trouble with day-to-day activities such as bathing, preparing meals, shopping, managing finances, etc.?: Yes Are you currently unemployed and looking for a job?: No Are you interested in more education?: No Please select the resources that you would like help with: None Currently or been in a relationship where the following occur: no concerns reported AUDIT C Alcohol Use Questionnaire (AUDIT-C) 1. How often do you have a drink containing alcohol?: Never Total Score: 0 FRANSISCO-7 AMB Questionnaire FRANSISCO-7 Date FRANSISCO - 7 assessed: 06/03/23 Feeling nervous, anxious, or on edge: 1 = Several days Not being able to stop or control worryin = Not at all Worrying too much about different things: 1 = Several days Trouble relaxin = Nearly every day Being so restless that it is hard to sit still: 3 = Nearly every day Becoming easily annoyed or irritable: 1 = Several days Feeling afraid as if something awful might happen: 1 = Several days Total FRANSISCO-7 score (0-4 normal; 5-9 mild; 10-14 moderate; 15-21 severe): 10 Source: Developed by Drs. Telly Staples, Yissel Richard, Theo Ruggiero and colleagues, with an educational kelvin from [employer]. Physical exam (Primary Care) Vital Signs: Last Vital Signs BP 106/70 06/03/23 13:13 BMI result Body Mass Index 21.9 Tobacco/Smoking Status: Tobacco use Status Tobacco use date assessed 01/31/23 06/03/23 13:18 Patient Tobacco Use Status Former Tobacco user 06/03/23 13:18 Tobacco use type Cigarette 06/03/23 13:18 e-Cigarette/Vaping Use Never Used 06/03/23 13:18 PHQ-9: PHQ-9 Score PHQ-9: Total score 13 06/03/23 13:18 Thrive Assessment: Date of Thrive Assessment Date Thrive assessed 06/03/23 06/03/23 13:18 Currently or been in a relationship where the following occur: no concerns reported Const General: alert; No acute distress Eyes Conjunctivae: conjunctivae normal Resp Auscultation: clear to auscultation bilaterally Cardio Rate: regular rate Rhythm: regular rhythm GI Inspection: Yes normal to inspection Extrem General: Yes normal to inspection and No edema Assessment and Plan Assessment & Plan (1) Parkinson disease: Comment: May 2019 Code(s): G20 - Parkinson's disease Plan: Patient is being followed up by Neurology and has been started on a morphine, continuing with Rytary (2) Hypercholesteremia: Code(s): E78.00 - Pure hypercholesterolemia, unspecified Plan: Avoid fried foods, chicken skin, eggs, butter margarine, pastries and meat. Be it pork or beef they have a lot of cholesterol [place] blood work LDL goal of less than 130 and triglyceride of less than 150 (3) Generalized anxiety disorder: Comment: [facility] Counseling Code(s): F41.1 - Generalized anxiety disorder Plan: Continue with counseling and therapy (4) Kidney stone on left side: Code(s): N20.0 - Calculus of kidney Plan: Increase oral fluids Orders: Orders Thyroid Stimulating Hormone Today E78.00 - Pure hypercholesterolemia, unspecified Vitamin B12 and Folate Today E78.00 - Pure hypercholesterolemia, unspecified Lipid Panel Today E78.00 - Pure hypercholesterolemia, unspecified Magnesium Today E78.00 - Pure hypercholesterolemia, unspecified Comprehensive Met. Panel Today E78.00 - Pure hypercholesterolemia, unspecified Complete Blood Count Auto Diff Today E78.00 - Pure hypercholesterolemia, unspecified Free T4 (Free Thyroxine) Today E78.00 - Pure hypercholesterolemia, unspecified Vitamin D 25-OH Total Today E78.00 - Pure hypercholesterolemia, unspecified Referrals Neurology Referral G20 - Parkinson's disease Coding Level of Care Code Est Pt Level 4 (49970) Diagnoses Parkinson disease G20 Hypercholesteremia E78.00 Generalized anxiety disorder F41.1 Kidney stone on left side N20.0
== END 2023-06-03 13:53 | disposition home or self-care (01) ==
PROVIDERS: Visit Provider Internal Medicine
DX: G20 Parkinson's disease (principal); E78.00 Pure hypercholesterolemia, unspecified; F41.1 Generalized anxiety disorder; N20.0 Calculus of kidney
CPT/HCPCS: 99214

== ENCOUNTER 2023-06-28 08:55 | Outpatient (REF) | payer OTHER, SELFPAY ==
[2023-06-28 11:45] LABS: MANUAL DIFF FLAG NO
[2023-06-28 11:57] LABS: Basophils Percent Auto 0.9 % (0-2); Eosinophils Absolute Auto 0.1 X10*3/uL (0.0-0.4); Hematocrit 42.7 % (37.0-47.0); Hemoglobin 13.8 g/dl (12.0-16.0); Imm Gran Abs Auto 0.01 X10*3/uL (0.00-0.03); Imm Gran Pct Auto 0.2 % (0.0-0.4); Lymphocytes Absolute Auto 1.1 X10*3/uL (1.2-4.9); Lymphocytes Percent Auto 24.5 % (20-40); Mean Corpuscular HGB Conc 32.3 g/dl (31.0-35.0); Mean Corpuscular Hemoglobin 31.2 pg (27.0-33.0); Mean Corpuscular Volume 96.6 fL (80.0-98.0); Mean Platelet Volume 12.4 fL (9.4-12.3); Monocytes Absolute Auto 0.2 X10*3/uL (0.1-1.2); Monocytes Percent Auto 4.6 % (2-11); Neutrophils Absolute Auto 3.1 x10*3/uL (2.0-8.3); Neutrophils Percent Auto 67.8 % (45-73); Platelet Count 185 X10*3/uL (160-400); Red Blood Count 4.42 X10*6/uL (4.20-5.50); White Blood Count 4.6 X10*3/uL (4.8-10.8)
[2023-06-28 12:35] LABS: Alanine Aminotransferase < 5 U/L (0-31); Albumin Level 4.1 g/dL (3.5-5.0); Alkaline Phosphatase 80 U/L (39-117); Anion Gap 13 (12-20); Aspartate Amino Transferase 12 U/L (5-31); Bilirubin Total 0.5 mg/dL (0.0-1.0); Blood Urea Nitrogen 12 mg/dL (9-16); Calcium 9.3 mg/dL (8.4-10.2); Carbon Dioxide 27 mmol/L (22-29); Chloride 106 mmol/L (96-108); Cholesterol 185 mg/dL (<200); Estimated Glomerular Filt Rate > 60; Glucose Random 98 mg/dL (60-115); HDL Cholesterol 57 mg/dL (>40); LDL Cholesterol Calculated 113 mg/dL (<100); Magnesium 2.1 mg/dL (1.6-2.6); Potassium 3.6 mmol/L (3.3-5.1); Sodium 142 mmol/L (135-145); Total Protein 6.9 g/dL (6.5-8.0); Triglycerides 79 mg/dL (<150)
[2023-06-28 12:37] LABS: Thyroid Stimulating Hormone 0.78 uIU/mL (0.32-4.0)
[2023-06-28 13:01] LABS: Folate 11.1 ng/mL (> or = 4.0); Vitamin B12 326 pg/mL (200-900)
== END 2023-06-28 08:56 | disposition home or self-care (01) ==
LOC: HO.10HDL 08:55
PROVIDERS: Visit Provider Internal Medicine
DX: E78.00 Pure hypercholesterolemia, unspecified (principal)
CPT/HCPCS: 36415; 80053; 80061; 82607; 82746; 83735; 84443; 85025

== ENCOUNTER 2023-08-14 11:23 | Outpatient (AMB) | payer OTHER, SELFPAY ==
--- NOTE | 2023-08-14 11:26 | A.OFFVIS_ITS ---
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 She is accompanied her IT MANAGER Denia. She is doing well with no instructor ground services concerns. Uses a walker. Currently not sexually active. Denies any vaginal dryness or irritation. Last pap smear; 05/2022-neg. Last mammogram; [id number]. Colonoscopy is UTD. [facility] Medical History Renal calculi Insomnia Peripheral neuropathy Tarlov cyst Cervical nerve root impingement Depression Hypercholesteremia Vitamin D deficiency Parkinson disease Surgical History Hx of colonoscopy History of hand surgery History of bilateral tubal ligation Family History Father No problems noted. Mother Diabetes Son No problems noted. Maternal Aunt Colon cancer Maternal Uncle Colon cancer Social History Household Members Other:: daughter Housing: Apartment Are you a primary after school caregiver to a significant other at home: No Do you presently have visiting nurse or other home services: Yes (IT MANAGER daily) Alcohol intake: never Patient Tobacco Use Status: Former Tobacco user Quit Date: years ago Tobacco use type: Cigarette Years Smoked: smokes weed quit smoking 32 years old e-Cigarette/Vaping Use: Never Used Substance Use Type: Marijuana service: No Current occupational status: disabled Sexual orientation: Straight/Heterosexual Gender identity: Female Cognitive needs: Yes Hearing needs: No Vision needs: No Female Reproductive History Menstrual Age of Menarche: 15 control method: permanent sterilization Permanent Sterilization: BTL Menopause type: natural Total pregnancies: 2 Full term: 2 Number of Living Children: 1 Date of last pap smear: 06/07/22 (neg pap and hpv) Date of Mammogram: 12/07/22 ([facility] 1) Review of Systems Const All systems reviewed & are unremarkable except as noted in HPI and below Reports as per HPI Eyes Reports no additional complaints ENT Reports no additional complaints Card Reports no additional complaints Resp Reports no additional complaints GI Reports as per HPI and Reports no additional complaints Reports as per HPI Musc Reports no additional complaints Skin/Breast Reports as per HPI Neuro Reports no additional complaints Psych Reports no additional complaints Endo Reports no additional complaints Derrick/Lymph Reports no additional complaints Aller/Immun Reports no additional complaints Physical Exam Vital Signs: Last Vital Signs BP 106/66 08/14/23 11:27 BMI result Body Mass Index 21.7 Const General: cooperative, healthy appearing, no acute distress, well developed and alert Orientation/consciousness: patient oriented x3 HEENT Head: Yes normal to inspection Eyes General: appearance normal, both eyes and all related structures Neck Neck: Yes normal visual inspection Thyroid: Thyroid normal Chest Chest palpation & inspection: normal inspection of the chest and other (no puckering, dimpling, peau de orange, retraction, discharge, masses) Breast/axilla inspection: normal inspection of the breasts Breast/axilla palpation: normal palpation of the breasts Resp Effort & Inspection: normal respiratory effort GI Inspection: Yes normal to inspection Palpation (GI): Soft to palpation Rectal Exam - Female: deferred General: Yes bladder normal to palpation External Female Exam: normal external appearance and normal appearance of the urethra Speculum Exam - Vagina: normal appearance of the vagina, normal palpation, normal vaginal discharge and vagina atrophic Speculum Exam - Cervix: normal appearance of the cervix and normal palpation Bimanual exam- vagina & uterus: normal bimanual exam, normal palpation, uterine size normal, bladder normal to palpation, normal palpation and non-tender Bimanual Exam- Adnexa, other: no masses Skin General skin exam: no rashes or lesions noted Rashes: no rashes Neuro General: patient oriented x3 Cognition (Neuro): normal cognition Extrem General: Yes normal to inspection Psych Attitude: cooperative Thought process: Normal thought process present Assessment & Plan Assessment & Plan (1) Encounter for well woman exam with routine gynecological exam: Code(s): Z01.419 - Encounter for gynecological examination (general) (routine) without abnormal findings Plan Discussed: Current recommendations for pap smears per ASCCP guidelines. Breast awareness, periodic self breast exams and yearly mammogram. Maintain a healthy lifestyle, well balanced diet including Calcium 1,200 mg and Vitamin D 600 IU daily, and routine exercise. Contact the office with any postmenopausal bleeding. All of her questions and concerns were addressed to the best of my ability. RTO in 1 year for annual instructor ground services exam. Coding Level of Care Code New Pt Prev Care 40-64y(45994) Diagnoses Encounter for well woman exam with routine gynecological exam Z01.419
[2023-08-14 11:27] VITALS: BP 106/66; BMI 21.7
== END 2023-08-14 11:52 | disposition home or self-care (01) ==
PROVIDERS: PCP Internal Medicine; Visit Provider Advanced Practice Midwife
DX: Z01.419 Encounter for gynecological examination (general) (routine) without abnormal findings (principal)
CPT/HCPCS: 99386

== ENCOUNTER → 2023-08-14 11:23 | Outpatient (BNVA) | payer OTHER, SELFPAY | PROVIDERS: PCP Internal Medicine; Visit Provider Advanced Practice Midwife ==

== ENCOUNTER 2023-08-27 13:35 | Outpatient (AMB) | payer OTHER, SELFPAY ==
--- NOTE | 2023-08-27 13:41 | A.OFFVIS_ITS ---
Intake Vital Signs 08/27/23 13:45 Pulse 76 Pulse Source Pulse Oximeter Pulse Oximetry (%) 100 Oxygen Delivery Method Room Air Intake Visit Reasons: 4m follow up Parkinson's-Confirmed Intake Note: Patient presents for 4 month follow up. Allergies No Known Allergies Allergy (Verified 08/27/23 13:44) Medication List - Last Reconciled 08/27/23 by AMADEO Guardado apomorphine (APOKYN) 0.1 - 0.4 mL subcut Q2H PRN 30 days carbidopa-levodopa 25-100 mg 1 tab PO QID PRN 30 days carbidopa-levodopa 48.75-195 mg ER (Rytary) 2 caps orally every 3 hours; 30 day s chlorhexidine gluconate 0.12% mL PO hyoscyamine sulfate (Levsin/SL) 0.125 - 0.25 mg (1 - 2 x 0.125 mg) PO Q4H PRN 30 days MDD 1.5 mg/day lorazepam 0.5 mg PO TID PRN 30 days polyethylene glycol 3350 (Miralax) 17 grams PO DAILY sennosides (senna) 8.6 mg PO DAILY HPI HPI Comments History of Present Illness Details 63-yr-old female presents for f/u visit, accompanined by her niece Pt's current PD medication regimen: Rytary 48.75-195 mg cap, 2 caps p.o. every 3 hrs; Carbidopa levodopa 25-100 mg 1 tab p.o. q.i.d. p.r.n. for off times- usually 2 x's per day. Lorazepam p.r.n. anxiety and dystonic episodes- usually 2 x's per day. Do medication effects last between doses: She is not noticing as much dyskinesia or off-times. She did not try adding Carbidopa- was not sure why I suggested this She states she did not hear anything about the Apokyn. It was approved from Apr 2023-Apr 2024. Pt's primary concerns are: She is always cold, both hot and cold sweats, which is uncomfortable. The sweats seem to come on before episodes of increased tremor/slowness. ADL's: Slow, difficult as she is always cold Swallowing: Sometimes difficulty w/ meds, water, or solids Drooling: Sometimes Orthostatic lightheadedness: Sometimes has transient orthostatic lightheadedness. Constipation: Stable Freezing: Has episodes of becoming stuck and frozen. Stiffness: Feels generally stiff Tremor: Not so much Dyskinesia: Not noticing as much Falls: None Hallucinations: None Memory: Ok Sleep: Barely. Difficulty falling asleep and staying asleep. Denies parasomnia Exercise: Tries to exercise when able. Tries to walk. [facility] Medical History Renal calculi Insomnia Peripheral neuropathy Tarlov cyst Cervical nerve root impingement Depression Hypercholesteremia Vitamin D deficiency Parkinson disease Surgical History Hx of colonoscopy History of hand surgery History of bilateral tubal ligation Family History Father No problems noted. Mother Diabetes Son No problems noted. Maternal Aunt Colon cancer Maternal Uncle Colon cancer Social History Household Members Other:: daughter Housing: Apartment Are you a primary nonfarm animal caretaker to a significant other at home: No Do you presently have visiting nurse or other home services: Yes (PATIENT SUPPORT TECH daily) Alcohol intake: never Patient Tobacco Use Status: Former Tobacco user Quit Date: years ago Tobacco use type: Cigarette Years Smoked: smokes weed quit smoking 32 years old e-Cigarette/Vaping Use: Never Used Substance Use Type: Marijuana service: No Current occupational status: disabled Sexual orientation: Straight/Heterosexual Gender identity: Female Cognitive needs: Yes Hearing needs: No Vision needs: No Female Reproductive History Menstrual Age of Menarche: 15 Review of Systems Const All systems reviewed & are unremarkable except as noted in HPI and below Physical Exam Vital Signs: Last Vital Signs Pulse 76 08/27/23 13:45 Pulse Ox 100 08/27/23 13:45 Oxygen Delivery Method Room Air 08/27/23 13:45 Const General: cooperative and no acute distress Resp Effort & Inspection: normal respiratory effort and able to speak in complete sentences Neuro Other: Cognition: Alert, oriented. Expression: Decreased expression and blink Voice: Soft voice Tremor: None Tone: not-assessed Dyskinesia: None Gait: Slow to stand, short steps, steady with walker Assessment & Plan Assessment & Plan (1) Parkinson's disease with dyskinesia: Comment: PD dx 2019. Intermittent dyskinesia Code(s): G20.B1 - Parkinson's disease with dyskinesia, without mention of fluctuations (2) Swallowing difficulty: Code(s): R13.10 - Dysphagia, unspecified (3) Hyperhidrosis: Code(s): R61 - Generalized hyperhidrosis Plan Pt advised to undergo brain MRI w/wo- to assess for pituitary process in setting of worsening hot/cold flashes. Barium swallow to assess dysphagia. Hold Apokyn and Carbidopa- pt is having less unpredictable off-times and abd bloating. Start Hyoscyamine 0.125mg SL tab- start 1 tab q 4 hrs prn, may increase to 1-2 tabs q 4 hrs prn excess sweating. Reviewed potential ADRs in detail. Continue Rytary 48.75-195 mg cap, 2 caps p.o. every 3 hrs.- pt is not interested in decreasing Rytary at this time. Continue carbidopa levodopa 25-100 mg 1 tab p.o. q.i.d. p.r.n. for off times. Continue lorazepam p.r.n. anxiety and dystonic episodes. Previous trials- Pramipexole- caused increased sweating, Propranolol 10mg bid- caused lightheadedness, Rasagiline- not tolerated. Inbrija previously was helpful- however most recent insurance denial- insurance requires trial of Rasagiline,m selegiline, entacapone, tolcapone, ongentys, nourianz.. Pt is still not interested in Duopa- d/t excessive sweating. Pt advised to update us w/ effect of trying Hycosamine and any s/e's, and f/u in-clinic in 3 months or sooner prn. Orders: Orders MR head/brain wo/w con Today G20 - Parkinson's disease, G24.9 - Dystonia, unspecified, R23.2 - Flushing, R79.89 - Other specified abnormal findings of blood chemistry [place] barium swallow Today G20 - Parkinson's disease, R13.10 - Dysphagia, unspecified Medications: New hyoscyamine sulfate (Levsin/SL) prn excess sweating 0.125 - 0.25 mg (1 - 2 x 0.125 mg) PO Q4H PRN 240 tabs 3RF hyperhidrosis 30 days MDD 1.5 mg/day hyoscyamine sulfate (Levsin/SL) 0.125 - 0.25 mg (1 - 2 x 0.125 mg) PO Q4H 30 days PRN 240 tabs 3RF dyspepsia MDD 1.5 mg/day Refilled carbidopa-levodopa 25-100 mg 1 tab PO QID PRN 120 tabs 6RF dystonia 30 days Discontinued carbidopa Discontinued Reason: Doctor's Order 25 mg orally 6 times per day; 30 days 180 tabs 3RF Coding Level of Care Code Est Pt Level 4 (45431) Diagnoses Parkinson's disease with dyskinesia G20.B1 Swallowing difficulty R13.10 Hyperhidrosis R61
[2023-08-27 13:45] VITALS: PULSE 76; O2SAT 100
== END 2023-08-27 14:34 | disposition home or self-care (01) ==
PROVIDERS: PCP Internal Medicine; Visit Provider Nurse Practitioner Family
DX: G20.B1 Parkinson's disease with dyskinesia, without mention of fluctuations (principal); R13.10 Dysphagia, unspecified; R61 Generalized hyperhidrosis
CPT/HCPCS: 99214

== ENCOUNTER → 2023-08-27 13:35 | Outpatient (BNVA) | payer OTHER, SELFPAY | PROVIDERS: PCP Internal Medicine; Visit Provider Nurse Practitioner Family | DX: G20.B1 Parkinson's disease with dyskinesia, without mention of fluctuations (principal); R13.10 Dysphagia, unspecified; R61 Generalized hyperhidrosis | CPT/HCPCS: 99212 ==